=== PATIENT | female | born 1980 | race Two or more races ===

== ENCOUNTER 2017-06-06 08:14 | Outpatient (CLI) | payer MEDICAID ==
[~2017-06-06] VITALS: Ht 157.5 cm; Wt 68.4 kg
[2017-06-06 08:33] VITALS: Ht 157.5 cm; Wt 68.4 kg
[2017-06-06 08:34] VITALS: BP 109/68; PULSE 75; RESP 18
[2017-06-06] MEDS ORDERED: TERBUTALINE 1 MG/ML INJ SC ONE (09:30)
[2017-06-06] MEDS ORDERED: LACTATED RINGER'S 1,000 ML IV ONE (09:30)
[2017-06-06 11:57] LABS: BASOPHILS % 0.3 % (0.0-2.0); EOSINOPHILS % 0.1 % (0.0-7.0); HEMATOCRIT 36.9 % (37.0-47.0); HEMOGLOBIN 12.1 g/dl (12.0-16.0); LYMPHOCYTES # 1.8 10^3/ul (0.8-2.9); MEAN CORPUSCULAR HGB CONC 32.8 g/dl (32.0-37.0); MEAN CORPUSCULAR VOLUME 94.6 fl (82.0-101.0); MEAN PLATELET VOLUME 10.1 fl (7.4-10.4); MONOCYTE # 0.7 10^3/ul (0.3-0.9); MONOCYTES % 6.7 % (0.0-11.0); NEUTROPHIL # 7.5 10^3/ul (1.6-7.5); PLATELET COUNT 300 10^3/UL (140-415); RED CELL DISTRIBUTION WIDTH 14.4 % (11.5-14.5); WHITE BLOOD COUNT 10.1 10^3/ul (4.8-10.8)
[2017-06-06 12:22] LABS: ADD UMIC NO; UR ASCORBIC ACID NEGATIVE (NEGATIVE); UR BACTERIA FEW /HPF (NONE SEEN); UR BILIRUBIN (Dip) NEGATIVE (NEGATIVE); UR BLOOD (Dip) NEGATIVE (NEGATIVE); UR CLARITY SLIGHTLY CLOUDY (CLEAR); UR COLOR YELLOW (YELLOW); UR GLUCOSE (Dip) NEGATIVE (NEGATIVE); UR KETONES (Dip) TRACE mg/dL (NEGATIVE); UR LEUKOCYTE ESTERASE (Dip) NEGATIVE Leu/ul (NEGATIVE); UR NITRITE (Dip) NEGATIVE (NEGATIVE); UR RBC 0 /HPF (0-5); UR SPECIFIC GRAVITY (Dip) 1.011 (1.003-1.030); UR SQUAMOUS EPITHELIAL CELL FEW /HPF (FEW); UR TOTAL PROTEIN (Dip) NEGATIVE (NEGATIVE); UR UROBILINOGEN (Dip) NEGATIVE (NEGATIVE)
--- NOTE | 2017-06-06 12:37 | RADRPT ---
PROCEDURE: US OB. CLINICAL INDICATION: Size and dates , contractions TECHNIQUE: Multiple sonographic images of the pelvis and gravid uterus were obtained. The images were reviewed on a PACS workstation. COMPARISON: No prior studies are available for comparison. FINDINGS: There is a single viable intrauterine gestation. Cardiac activity is present with 144 beats per min [place]. There is a vertex presentation. The placenta is left lateral. There is no evidence for an abruption or placenta previa. Measurements were made in order to determine age. The results are as follows: BPD =8.7 cm HC =31.5 cm AC =34.2 cm FL =7.3 cm Estimated gestational age of approximately 36 weeks and 4 days based on ultrasound measurements. Clinical age: 37 weeks and 0 days. The estimated date of delivery is 06/30/17, based on ultrasound measurements. The EFW = 3167 g, 64.1%, based on LMP age. RPTAT: AA IMPRESSION: Single viable intrauterine gestation of approximately 36 weeks and 4 days based on ultrasound measu rements. .Andrews White MD, MD Date Time Electronically viewed and signed by .Andrews White MD, on 06/06/2017 12:37 .S/
--- NOTE | 2017-06-06 12:38 | RADRPT ---
PROCEDURE: US OB biophysical profile. CLINICAL INDICATION: decreased movements, contractions TECHNIQUE: Multiple sonographic images of the pelvis were obtained. The images were reviewed on a PACS workstation. COMPARISON: No prior studies are available for comparison. FINDINGS: There is a single viable intrauterine gestation. Cardiac activity is present with 138 beats per min [place]. There is a vertex presentation. The placenta is left lateral. There is no evidence of placental abruption. There is a normal amount of amniotic fluid with an JANNY = 9.8 cm. Biophysical profile: movement 2/2 tone 2/2. breathing 2/2 JANNY 2/2 Total 03/11 RPTAT: AA . IMPRESSION: Normal biophysical profile. . .Andrews White MD, MD Date Time Electronically viewed and signed by .Andrews White MD, MD on 06/06/2017 12:37 .S/
--- NOTE | 2017-06-06 13:36 | PN ---
Triage Information Date/Time C/O onset of uterine contractions started this AM denies ROM Reason for visit: Uterine contractions Weeks of Gestation 36+ /Para gravia2 Para1 Diabetes: none Hypertention: none Objective Vital Signs Date Time Temp Pulse Resp B/P Pulse Ox O2 Delivery O2 Flow Rate FiO2 06/06/17 08:34 98.2 75 18 109/68 Room Air Heart Rate: 140's Heart Rate Comments reactive Contractions: 6-10 Minutes Apart Results/Medications Result Diagram: 06/06/17 1000 Results 24 hrs Laboratory Tests Test 06/06/17 10:00 06/06/17 10:45 White Blood Count 10.1 Red Blood Count 3.90 L Hemoglobin 12.1 Hematocrit 36.9 L Mean Corpuscular Volume 94.6 Mean Corpuscular Hemoglobin 31.0 Mean Corpuscular Hemoglobin Concent 32.8 Red Cell Distribution Width 14.4 Platelet Count 300 Mean Platelet Volume 10.1 Neutrophils % 74.0 Lymphocytes % 18.0 Monocytes % 6.7 Eosinophils % 0.1 Basophils % 0.3 Nucleated Red Blood Cells % 0.0 Neutrophils # 7.5 Lymphocytes # 1.8 Monocytes # 0.7 Eosinophils # 0.0 Basophils # 0.0 Nucleated Red Blood Cells # 0.0 Urine Color YELLOW Urine Clarity SLIGHTLY CLOUDY A Urine pH 7.0 Urine Specific [place] 1.011 Urine Ketones TRACE A Urine Nitrite NEGATIVE Urine Bilirubin NEGATIVE Urine Urobilinogen NEGATIVE Urine Leukocyte Esterase NEGATIVE Urine Microscopic RBC 0 Urine Microscopic WBC 0 Urine Squamous Epithelial Cells FEW Urine Bacteria FEW A Urine Hemoglobin NEGATIVE Urine Glucose NEGATIVE Urine Total Protein NEGATIVE Imaging Results EFW>3100gm Disposition: Discharge Assessment/Plan sfter SQ terbutaline uterine contractions subsided will follw outpatient LETICIA AVILA MD Jun 06, 2017 13:36
[2017-06-07] MEDS ORDERED: IBUP-1542 PO (13:07)
== END 2017-06-06 14:00 | disposition home or self-care (01) ==
LOC: L-D 08:14 → OBT 08:14
PROVIDERS: ATTEND Obstetrics & Gynecology
DX: O62.9 Abnormality of forces of labor, unspecified (principal); Z3A.36 36 weeks gestation of pregnancy
CPT/HCPCS: 36415; 76815; 76818; 81001; 81003; 85025; 96360; 96361; J3105; J7120; Z7500; G0463

== ENCOUNTER 2017-06-06 16:49 | Inpatient (IN) | payer MEDICAID ==
[~2017-06-06] VITALS: Ht 160 cm; Wt 82.1 kg
[2017-06-06] MEDS ORDERED: LACTATED RINGER'S 1,000 ML IV SCH (16:58)
[2017-06-06] MEDS ORDERED: IBUPROFEN 600 MG TAB PO PRN (17:00)
[2017-06-06] MEDS ORDERED: OXYTOCIN 30 UNITS/LR 500 ML IV PRN ×2 (17:00→23:30)
[2017-06-06] MEDS ORDERED: CARBOPROST 250 MCG INJ IM PRN ×2 (17:00→23:30)
[2017-06-06] MEDS ORDERED: METHYLERGONOVINE 0.2 MG INJ IM PRN ×2 (17:00→23:30)
[2017-06-06] MEDS ORDERED: LIDOCAINE 1% (MPF) 30 ML INJ INJ PRN (17:00)
[2017-06-06] MEDS ORDERED: OXYTOCIN 30 UNITS/LR 500 ML IV SCH ×2 (17:00)
[2017-06-06] MEDS ORDERED: LACTATED RINGER'S 1,000 ML IV PRN (17:00)
[2017-06-06] MEDS ORDERED: HYDROCODONE/APAP (5/325) TAB PO PRN ×2 (17:00→23:30)
[2017-06-06] MEDS ORDERED: BUTORPHANOL 2 MG INJ IV PRN ×2 (17:00)
[2017-06-06] MEDS ORDERED: MISOPROSTOL 200 MCG TAB PR PRN ×2 (17:00→23:30)
[2017-06-06] MEDS ORDERED: AMPICILLIN 2 GM/NS (PMX) 100 ML ONE (17:47)
[2017-06-06] MEDS ORDERED: FENTAnyl 2MCG/ML-ROPIV 0.2% 100 ML ONE (17:51)
[2017-06-06] MEDS ORDERED: BETAMET NA PHOS/AC(6 MG/ML) 5ML INJ IM ONE (18:00)
[2017-06-06] MEDS ORDERED: AMPICILLIN 2 GM/NS (PMX) 100 ML IV ONE (18:00)
[2017-06-06] MEDS ORDERED: MINERAL OIL LIGHT 10 ML VIAL TOP ONE (18:00)
[2017-06-06] MEDS ORDERED: NALOXONE (0.4 MG/ML) INJ IV PRN (18:30)
[2017-06-06] MEDS ORDERED: FENTAnyl 2MCG/ML-ROPIV 0.2% 100 ML BAG EPI SCH (18:30)
[2017-06-06 18:42] VITALS: Ht 160 cm; Wt 82.1 kg
--- NOTE | 2017-06-06 19:18 | HP ---
Date/Time of Note Date/Time of Note DATE: 06/06/17 TIME: 19:13 OB - History Hx of Present Free Text/Dictation 37-year-old female 2 para 1 with history of previous 1 at 36 weeks and 4 days admitted in active labor Was seen earlier in labor and delivery at the time of examination she was long and closed and patient was discharged home She referred herself back in active labor Last Menstrual Period: Sep 23, 2016 Estimated Due Date: Jun 30, 2017 : 2 Para: 1 Care: Limited Care Ultrasounds: Normal mid trimester US Obstetrical Complications: None Medical Complications: None, Other (Previous section) Past Family/Social History * Past Medical, Surgical, Family and Obstetric Histories reviewed from chart. Blood Type: A+ Rubella: immune RPR/VDRL: Negative GBS Status: Positive HBsAG: Negative OB Admission Exam Vital Signs Vital Signs See nurse's notes Physical Exam HEENT: WNL Heart: Rhythm Normal Lungs: Clear, Equal Abdomen: WNL Extremities: Normal Reflexes: Normal Cervical Dilatation: 5cm Effacement: 100% Station: -2 Membranes: Intact Heart Rate: 140's Accelerations: Accelerations Present Decelerations: No Decelerations Varibility: Moderate Contractions on Admission: < 5 Minutes Apart Date/Time Contractions Began: June 06, 2017 in a.m. Frequency of Contractions: Every 5 minutes Duration: Over 60 seconds Intensity: Firm Last 72 hours Lab Results CBC & BMP 06/06/17 17:30 Liver Function Test 06/06/17 17:30 Alanine Aminotransferase (ALT/SGPT) 21 Albumin 3.3 Alkaline Phosphatase 226 H Aspartate Amino Transf (AST/SGOT) 25 Direct Bilirubin 0.00 Total Protein 6.7 OB Assessment/Plan Reason for admission: active labor Other Assessment: 36 weeks and 4 days gestation labor Previous section 1 Other plan: Patient expressed the fact that she wanted to have a vaginal delivery understanding complication of vaginal delivery with previous section including but not limited to ruptured uterus maternal damage and or We will allow to continue per patient request LETICIA AVILA MD Jun 06, 2017 19:18
[2017-06-06] MEDS ORDERED: AMPICILLIN 1 GM/NS (PMX) 50 ML IV SCH (22:00)
[2017-06-06] MEDS: OXYTOCIN 30 UNITS/LR 500 ML IV SCH (23:05)
--- NOTE | 2017-06-06 23:05 | LDN ---
Date/Time of Note Date/Time of Note DATE: 06/06/17 TIME: 23:02 Delivery Summary Successful of a viable baby girl weighing 2715 grams or 6#, 18" long, and with Apgars of 9/9. Weeks of Gestation 36w 4d Placenta Delivered: Spontaneously Meconium: none Perineal laceration: 2 Laceration repair: Small second degree perineal laceration repaired with 2-0 chromic. Anesthesia type: Epidural Estimated blood loss: 350 Sponge & Needle done & correct: Yes All needle counts correct: Yes Any foreign bodies felt in the: No (vagina) Problems: Delivery Information Sex Sex: female Apgars 1 Minute: 9 5 Minute: 9 Suctioning Nose & mouth suctioned at suzan: Yes Delee suction performed: No Umbilical Cord Umbilical cord with: 3 Vessels Cord presentations: no nuchal cord Cord Blood was obtained: Yes Mother & Baby Disposition Disposition Mom & Baby to Maternity; Good: Yes Baby to NICU: No VEE YODER MD Jun 06, 2017 23:05
[2017-06-06] MEDS ORDERED: LANOLIN 7 GM TUBE TOP PRN (23:30)
[2017-06-07] MEDS ORDERED: OXYTOCIN 30 UNITS/LR 500 ML IV PRN
[2017-06-07] MEDS ORDERED: CARBOPROST 250 MCG INJ IM PRN
[2017-06-07] MEDS ORDERED: MISOPROSTOL 200 MCG TAB PR PRN
[2017-06-07] MEDS ORDERED: METHYLERGONOVINE 0.2 MG INJ IM PRN
[2017-06-07 00:40] VITALS: BP 108/62; PULSE 78; RESP 18
[2017-06-07] MEDS: LACTATED RINGER'S 1,000 ML IV* SCH ×2 (01:27→07:05)
[2017-06-07] MEDS: OXYTOCIN 30 UNITS/LR 500 ML IV SCH (03:48)
[2017-06-07 04:00] VITALS: BP 110/54; PULSE 80; RESP 18
[2017-06-07] MEDS: IBUPROFEN 600 MG TAB PO SCH ×5 (05:37→23:41)
[2017-06-07] MEDS: BENZOCAINE 20% 56 ML SPRAY TOP PRN (05:37)
[2017-06-07 08:20] VITALS: BP 99/60; PULSE 75; RESP 18
--- NOTE | 2017-06-07 13:05 | DS ---
Date/Time of Note Date/Time of Note Home following day if stable DATE: 06/07/17 TIME: 13:04 Obstetrical Discharge Record Final Diagnosis Final Diagnosis: Term delivered Other Final Diagnosis Let us post vaginal delivery after Vaginal Delivery Obstetrical Delivery: Spontaneous, Laceration, Repaired Complications Labor Condition on Discharge Physical Assessment Last Vitals: See nurse's notes Voiding: Yes Bowel Movement: Yes Breast: Soft, non-tender, Filling Fundus: Firm Abdomen and Incision: Abdomen is soft bowel sounds present Fundus is firm at bellybutton Episiotomy: Not applicable Perineum is healing and is clean Calf Tenderness: No Patient Condition: Good LETICIA AVILA MD Jun 07, 2017 13:05
--- NOTE | 2017-06-07 13:06 | PD.PPDC ---
BEHAVIORAL HEALTH CLINICIAN Discharge Instruction Provider Information Physician Information 37-year-old female had vaginal delivery after Diagnosis Final Diagnosis: Status post successful vaginal delivery after Condition Patient Condition: Good Diet Diet: Resume Regular Diet Activity/Restrictions Activity: Normal Activity May Shower Restrictions: Nothing in the Vagina Return to Work or School: Jul 21, 2017 Follow-up Follow-up with Physician: 4, Week/Weeks (In clinic) Return to clinic for OB Instructions: Breast Tenderness Depression Comment: Pelvic rest 6 weeks LETICIA AVILA MD Jun 07, 2017 13:06
[2017-06-07] MEDS ORDERED: IBUP-1542 PO (13:07)
[2017-06-07] MEDS: CEPHALEXIN 500 MG CAP PO SCH ×3 (13:31→23:44)
[2017-06-07 16:05] VITALS: BP 100/74; PULSE 89; RESP 18
[2017-06-07 20:30] VITALS: BP 95/65; PULSE 90; RESP 17
[2017-06-08 04:30] VITALS: BP 100/55; PULSE 75; RESP 17
[2017-06-08] MEDS: IBUPROFEN 600 MG TAB PO SCH ×3 (05:34→17:47)
[2017-06-08] MEDS: CEPHALEXIN 500 MG CAP PO SCH ×3 (05:34→17:47)
[2017-06-08 08:20] VITALS: BP 105/56; PULSE 76; RESP 18
[2017-06-08] MEDS ORDERED: DIPHTH/TET/ACEL PERTUSS (ADULT) 0.5 ML VIAL IM* ONE (09:00)
[2017-06-08 16:45] VITALS: BP 102/66; PULSE 88; RESP 20
[2017-06-08] MEDS: BENZOCAINE 20% 56 ML SPRAY TOP PRN (20:12)
== END 2017-06-08 21:59 | disposition home or self-care (01) | DRG 775 ==
LOC: OBT 16:49 → L-D 16:50 → PP1 23:49
PROVIDERS: ADMIT Obstetrics & Gynecology; ATTEND Obstetrics & Gynecology
PROC: 10E0XZZ Delivery of Products of Conception, External Approach (ICD-10-PCS; principal; 2017-06-06)
PROC: 0KQM0ZZ Repair Perineum Muscle, Open Approach (ICD-10-PCS; 2017-06-06)
PROC: 3E0P3VZ Introduction of Hormone into Female Reproductive, Percutaneous Approach (ICD-10-PCS; 2017-06-06)
DX: O60.14X0 Preterm labor third trimester with preterm delivery third trimester, not applicable or unspecified (principal); O70.1 Second degree perineal laceration during delivery; Z3A.36 36 weeks gestation of pregnancy; Z37.0 Single live birth
CPT/HCPCS: 62319; 80053; 85025; 85610; 85730; 86592; 86850; 86900; 86901; 90715; G0463; J0290; J0702; J2590; J3010; J7120